=== PATIENT | male | born 1970 | race Two or more races ===

== ENCOUNTER 2020-12-07 04:23 | Emergency (ER) | payer OTHER ==
[~2020-12-07] VITALS: Ht 182.9 cm; Wt 90.7 kg
[2020-12-07] MEDS ORDERED: CLARITIN5 MG (04:47)
[2020-12-07] MEDS ORDERED: NAPROXEN500 MG PO (08:05)
[2020-12-07] MEDS ORDERED: SKELAXIN800 MG PO (08:05)
== END 2020-12-07 08:39 | disposition home or self-care (01) ==
LOC: ER 04:23
DX: M25.512 Pain in left shoulder (principal)

== ENCOUNTER 2021-08-21 04:04 | Emergency (ER) | payer OTHER ==
[~2021-08-21] VITALS: Ht 185.4 cm; Wt 109.3 kg
[~2021-08-21 04:04] MED LIST: CLARITIN5 MG; NAPROXEN500 MG PO; SKELAXIN800 MG PO
[2021-08-21] MEDS ORDERED: GILPHEX TR TAB1 EACH (04:20)
[2021-08-21] MEDS ORDERED: ALLERGY RELIE15.8 ML (04:21)
[2021-08-21] MEDS ORDERED: AMOX TR-K250 MG/5 M (04:21)
== END 2021-08-21 10:39 | disposition home or self-care (01) ==
LOC: ER 04:04
DX: H81.12 Benign paroxysmal vertigo, left ear (principal)

== ENCOUNTER 2025-11-02 12:52 | Emergency (ER) | payer OTHER ==
[~2025-11-02] VITALS: Ht 182.9 cm; Wt 104.8 kg
[~2025-11-02 12:52] MED LIST changes: +ALLERGY RELIE15.8 ML; +AMOX TR-K250 MG/5 M; +GILPHEX TR TAB1 EACH
[2025-11-02] MEDS ORDERED: EZALLOR SPRINKLE5 MG PO (13:16)
[2025-11-02] MEDS ORDERED: SILVER SULFADIAZINE 50 GM JAR TOP ONE (14:30)
[2025-11-02] MEDS ORDERED: KETOROLAC TROMETHAMINE 30 MG VIAL ONE (14:42)
[2025-11-02] MEDS ORDERED: KETOROLAC TROMETHAMINE 30 MG VIAL IM ONE (14:45)
[2025-11-02] MEDS ORDERED: NORFLEX100MG PO (16:37)
[2025-11-02] MEDS ORDERED: DICLOFENAC SODI50 MG PO (16:37)
== END 2025-11-02 18:05 | disposition home or self-care (01) ==
LOC: ER 12:53
DX: M79.672 Pain in left foot (principal); G47.39 Other sleep apnea; E78.49 Other hyperlipidemia; V43.52XA Car driver injured in collision with other type car in traffic accident, initial encounter; W22.11XA Striking against or struck by driver side automobile airbag, initial encounter; Y93.89 Activity, other specified; Y92.413 State road as the place of occurrence of the external cause